=== PATIENT | female | born 1975 | race Two or more races ===

== ENCOUNTER 2024-12-05 21:42 | Emergency (ER) | payer MEDICAID, SELFPAY ==
[2024-12-05 21:44] VITALS: PULSE 105; RESP 16; O2SAT 95; BMI 20.6
[2024-12-05 21:56] VITALS: BP 135/85; PULSE 99; RESP 18; TEMP 36.6; O2SAT 98
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
--- NOTE | 2024-12-05 22:58 | PC.NURSE ---
[facility] HERE TALKING WITH PATIENT
[2024-12-05 23:59] VITALS: BP 166/98; PULSE 91; RESP 19; TEMP 36.4; O2SAT 100
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
--- NOTE | 2024-12-06 00:44 | PC.NURSE ---
PT BEING UNCOOPERATIVE WITH STAFF
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
== END 2024-12-06 04:21 | disposition left against medical advice (07) ==
PROVIDERS: Emergency Provider Emergency Medicine
DX: Z04.71 Encounter for examination and observation following alleged adult physical abuse (principal); Z53.29 Procedure and treatment not carried out because of patient's decision for other reasons
CPT/HCPCS: 99281